=== PATIENT | female | born 2000 | race Caucasian/White ===

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

== ENCOUNTER 2019-05-27 13:25 | Emergency (ER) | payer OTHER, SELFPAY ==
[2019-05-27 14:17] LABS: Bilirubin Negative (Negative); Blood, Urine Negative (Negative); Clarity Clear (Clear); Glucose, Urine (Dipstick) Normal (Negative); Leukocyte Negative Leu/uL (Negative); Nitrite Negative (Negative); Protein, Urine (Dipstick) Negative (Neg-Trace); Urobilinogen Normal mg/dL (Less than 2)
[2019-05-27 14:18] LABS: Pregnancy Test - Urine (BHCG) Negative (Negative); Pregu Control Background? CLEAR/WHITE (CLR/WHITE); Pregu Control Bar Appear? YES (CONTROL BAR); Specific Gravity 1.017 (1.002-1.036)
--- NOTE | 2019-05-27 14:48 | RAD ---
XR Chest Pa Lat STANDARD HISTORY: Cough, asthma COMPARISON: None FINDINGS: The heart size is normal. The lungs are well expanded without focal areas of consolidation, pneumothorax or pleural effusions. IMPRESSION: No radiographic evidence of acute cardiopulmonary process.
== END 2019-05-27 16:09 | disposition home or self-care (01) ==
LOC: ERS 13:25
DX: R05 Cough (principal); R07.9 Chest pain, unspecified; J45.909 Unspecified asthma, uncomplicated
CPT/HCPCS: 71046; 81003; 81025; 87804; 94640; J7620

== ENCOUNTER 2020-06-12 13:46 | Outpatient (CLI) | payer OTHER ==
--- NOTE | 2020-06-12 15:03 | ULT ---
Exam: OB ultrasound HISTORY: Evaluate anatomy. COMPARISON: None TECHNIQUE: Transabdominal imaging of the gravid uterus is performed FINDINGS: Cervix: Closed, measuring 4.4 cm Placenta: Anterior. No previa lie: Transverse, head maternal right heart tones: 155 bpm biometry: BPD 4.91 cm, 20 weeks 6 days Head circumference 19.41 cm, 21 weeks 5 days Abdominal circumference 16.41 cm, 21 weeks 4 days Femur length 3.68 cm, 21 weeks 5 days Average age by sonography is 21 weeks 4 days Estimated weight is 433 g Amniotic fluid index: 12.60 cm survey: The following structures are adequately demonstrated and have a normal appearance: [place] t[place] ventricle, cerebellum, cisterna magna, spine, bladder, cord insertion, three-vessel cord. Limited evaluation of the stomach and four-chamber heart. Limited evaluation of the kidneys. Visualiz ed extremities are unremarkable IMPRESSION: 1. Single intrauterine gestation with heart tones. Average age by biometry is 21 weeks 4 days 2. Estimated weight is 433 g 3. survey as above. Limited evaluation of the four-chamber heart, stomach and kidneys. Transcribed Date/Time: 06/12/2020 3:14 PM
== END 2020-06-12 13:47 | disposition home or self-care (01) ==
LOC: BICULT 13:46
PROVIDERS: ATTEND Family Medicine
DX: O09.892 Supervision of other high risk pregnancies, second trimester (principal); Z3A.21 21 weeks gestation of pregnancy
CPT/HCPCS: 76805

== ENCOUNTER 2022-04-09 08:13 | Outpatient (CLI) | payer MEDICAID | END 2022-04-09 08:14 | disposition home or self-care (01) | LOC: BICULT 08:13 | PROVIDERS: ATTEND Advanced Practice Midwife | DX: E05.90 Thyrotoxicosis, unspecified without thyrotoxic crisis or storm (principal); E07.89 Other specified disorders of thyroid | CPT/HCPCS: 76536 ==

== ENCOUNTER 2022-04-22 19:55 | Emergency (ER) | payer MEDICAID ==
[2022-04-22 21:11] LABS: #Basophils 0.1 thou/uL (0.0-0.2); #Eosinphils 0.8 thou/uL (0.0-0.7); #Lymphocytes 2.4 thou/uL (1.20-3.40); #Monocytes 0.6 thou/uL (0.11-0.59); #Neutrophils 6.3 thou/uL (1.40-6.50); %Basophils 0.6 % (0.0-1.0); %Eosinophils 7.5 % (0.0-10.0); %Lymphocytes 23.7 % (21.0-51.0); %Monocytes 5.9 % (0.0-10.0); %Neutrophils 62.4 % (42.0-75.0); Hemoglobin 12.4 g/dL (12.0-16.0); Mean Corpuscular HGB CONC 34.8 g/dL (32.0-36.0); Mean Platelet Volume 9.8 fL (7.4-10.4); Platelet Count 178 10x3/uL (130-400); Red Blood Cell (RBC) Count 3.89 mill/uL (4.20-5.40); White Blood Cell (WBC) Count 10.1 10x3/uL (4.8-10.8)
[2022-04-22 21:11] LABS: Bacteria/HPF None Seen HPF (None Seen); Bilirubin Negative (Negative); Blood, Urine Negative (Negative); Clarity Clear (Clear); Glucose, Urine (Dipstick) Normal (Negative); Ketone, Urine Negative (Negative); Leukocyte 25 Leu/uL (Negative); Nitrite Negative (Negative); Protein, Urine (Dipstick) Negative (Neg-Trace); RBC/HPF 0-3 HPF (0-3); Specific Gravity, Urine 1.019 (1.002-1.036); Urobilinogen Normal mg/dL (Less than 2); WBC/HPF 0-3 HPF (0-3)
[2022-04-22 21:39] LABS: Albumin 3.7 g/dL (3.5-5.0); Anion Gap 10 mmol/L (10-20); BUN (Urea Nitrogen) 10 mg/dL (7.0-18.7); Bilirubin, Total 0.3 mg/dL (0.2-1.2); Calc. Creatinine Clearance 0 mL/min (70-130); Calcium 9.1 mg/dL (7.8-10.44); Carbon Dioxide 23 mmol/L (22-29); Chloride 103 mmol/L (98-107); Estimated GFR 128; Globulin 2.8 g/dL (2.4-3.5); Potassium 3.3 mmol/L (3.5-5.1); Protein, Total 6.5 g/dL (6.0-8.3); Sodium 133 mmol/L (136-145)
[2022-04-22 21:40] LABS: ALT (SGPT) 12 U/L (8-55); AST (SGOT) 15 U/L (5-34); Alkaline Phosphatase 61 U/L (40-110)
[2022-04-22 23:31] LABS: Glucose 69 mg/dL (70-105)
== END 2022-04-22 23:00 | disposition home or self-care (01) ==
LOC: ERS 19:55
DX: R00.2 Palpitations (principal)
CPT/HCPCS: 36415; 36416; 80053; 81003; 81015; 85025; 93005; 96360